=== PATIENT | male | born 1955 | race African-American/Black ===

== ENCOUNTER 2021-04-28 18:22 | Emergency (ER) | payer MEDICAID ==
[~2021-04-28] VITALS: Ht 175.3 cm; Wt 95.0 kg
[2021-04-28] MEDS ORDERED: SULF1TAB48 MT (23:36)
[2021-04-28] MEDS ORDERED: TOPUD MT (23:36)
[2021-04-28] MEDS ORDERED: TETANUS, DIPHTHERIA, PERTUSSIS VAC/PF 0.5ML (>7YR OLD) IM ONE (23:45)
[2021-04-29 00:21] VITALS: BP 135/78
== END 2021-04-29 00:22 | disposition home or self-care (01) ==
LOC: ER 18:22
DX: N49.2 Inflammatory disorders of scrotum (principal); M25.572 Pain in left ankle and joints of left foot; I10 Essential (primary) hypertension
CPT/HCPCS: 73610; 73630; 90471; 90715; 99284; Z7610